=== PATIENT | female | born 1950 | race Caucasian/White ===

== ENCOUNTER → 2016-10-12 | Outpatient (CLI) | payer BC ==
[~2016-10-12] MED LIST: ALBU1AER9 INH; ASCO1CAP3 PO; CALC1CHW57 PO; CALC500T83 PO; CHOL100027 PO; CHOL1TAB76 PO; CLOTLOT2 TOP; CYAN10004 PO; DICL1GEL12 TOP; FBR PO; FIBE1CHW PO; FLNIN NAE; GABA1CAP5 PO; NAPR1TAB9 PO; PANT40TA PO; PLMINS NEB; POLY335019 PO; PRLSR20 PO; PRVC10 PO; PSYL55.43 PO; RANI300T2 PO; SNG10 PO; SYMIN160 INH
[2016-10-12 11:26] LABS: BLOOD UREA NITROGEN 17 mg/dl (7-18); BUN/CREATININE RATIO 22.2 (10-20); C-REACTIVE PROTEIN < 0.29 mg/dl (0-0.29); CALCIUM 9.4 mg/dl (8.5-10.1); CARBON DIOXIDE 29 mmol/L (21-32); CHLORIDE 105 mmol/L (98-107); CREATININE 0.77 mg/dl (0.60-1.20); GLUCOSE 87 mg/dl (70-99); POTASSIUM 4.3 mmol/L (3.5-5.1); SODIUM 139 mmol/L (136-145)
[2016-10-12 11:29] LABS: CHOLESTEROL 268 mg/dl (0-200); CHOLESTEROL/HDL RATIO 3.6; HDL CHOLESTEROL 75 mg/dl; LDL CHOLESTEROL CALCULATED 167 mg/dl; TRIGLYCERIDES 128 mg/dl (0-150); VERY LOW DENSITY LIPOPROT CALC 26 mg/dl
== END | disposition home or self-care (01) ==
LOC: C.LAB1850 09:58
PROVIDERS: ATTEND Family Medicine
DX: R79.82 Elevated C-reactive protein (CRP) (principal); E78.00 Pure hypercholesterolemia, unspecified

== ENCOUNTER → 2016-11-27 | Outpatient (CLI) | payer BC ==
[~2016-11-27] MED LIST changes: +MONT1TAB3 PO; +PLMINS; -PLMINS NEB; +PSYL0.524 PO; +VNTHFA/IN INH
--- NOTE | 2016-11-27 12:47 | MAMMOGRAPHY REPORT ---
BILATERAL DIGITAL SCREENING MAMMOGRAM WITH CAD: 11/27/2016 CLINICAL HISTORY: Routine screening. Patient has no complaints. TECHNIQUE: Bilateral CC and MLO views were obtained. Current study was also evaluated with a Comput er Aided Detection (CAD) system. COMPARISON: Comparison is made to exams dated: 11/25/2015 mammogram, 11/23/2014 mammogram, 10/08/2013 ma mmogram, 09/09/2012 mammogram, 02/20/2012 mammogram, and 02/14/2011 mammogram - [facility] nter. BREAST COMPOSITION: The tissue of both breasts is heterogeneously dense, which may obscure small ma sses. FINDINGS: There is an asymmetry in the posterior, slightly superior left breast, only seen on the M LO view. Although this could represent normal overlapping tissue, additional spot compression tomos ynthesis views and possibly ultrasound are recommended. There are scattered benign-appearing microcalcifications bilaterally. Stable intramammary lymph nod es in the posterior right breast. No other suspicious mass, architectural distortion or cluster of microcalcifications is seen bilaterally. IMPRESSION: ACR BI-RADS CATEGORY 0: INCOMPLETE EVALUATION: NEED ADDITIONAL IMAGING EVALUATION The asymmetry in the superior, posterior left breast needs additional evaluation. The patient will be called to schedule an appointment. Approximately 10% of breast cancers are not detected with mammography. A negative mammographic repor t should not delay biopsy if a clinically suggestive mass is present. Pamela Johnson M.D. ay/:11/27/2016 12:25:29 Floor Press Operator: Ruthie DHILLON(Radha)(Gabriela), [facility] letter sent: Addl Imaging 0 BI-RADS Code: ACR BI-RADS Category 0: Incomplete Evaluation: Need Additional Imaging Evaluation
== END | disposition home or self-care (01) ==
LOC: C.MAMM 09:58
PROVIDERS: ATTEND Obstetrics & Gynecology
DX: Z12.31 Encounter for screening mammogram for malignant neoplasm of breast (principal); N64.89 Other specified disorders of breast

== ENCOUNTER → 2016-12-05 | Outpatient (CLI) | payer BC ==
--- NOTE | 2016-12-05 14:54 | MAMMOGRAPHY REPORT ---
UNILATERAL LEFT DIGITAL DIAGNOSTIC MAMMOGRAM TOMOSYNTHESIS AND TARGETED LEFT ULTRASOUND: 12/05/2016 CLINICAL HISTORY: Callback from screening mammogram for left breast asymmetry. TECHNIQUE: Breast tomosynthesis in addition to standard 2D mammography was performed. Spot waylon yolanda left CC and MLO 2-D and tomosynthesis images were obtained. COMPARISON: Comparison is made to exams dated: 11/27/2016 mammogram, 11/25/2015 mammogram, 11/23/2014 jeannette mogram, 10/08/2013 mammogram, 09/09/2012 mammogram, and 03/04/2012 ultrasound - [facility] enter. BREAST COMPOSITION: The tissue of the left breast is heterogeneously dense, which may obscure small masses. FINDINGS: The previously described asymmetry seen within the left superior breast on the MLO view e ffaces to a baseline appearance on the additional spot compression view, and has the appearance of n ormal fibroglandular tissue on the tomosynthesis images. Targeted ultrasound was performed of the left superior breast in the region of the mammographic asym metry. Sonographically normal tissue is seen, without evidence of a mass or other suspicious sonogr aphic abnormality. IMPRESSION: ACR BI-RADS CATEGORY 2: BENIGN, TARGETED ULTRASOUND ACR BI-RADS CATEGORY 2: BENIGN The left breast asymmetry effaces on the additional views, without corresponding sonographic abnorma lity evident. The asymmetry is benign and compatible with normal fibroglandular tissue. There is n o mammographic or targeted sonographic evidence of malignancy. A 1 year screening mammogram is recom mended. The patient has been verbally notified of the results. Approximately 10% of breast cancers are not detected with mammography. A negative mammographic repor t should not delay biopsy if a clinically suggestive mass is present. Millie Hernandez M.D. /:12/05/2016 13:31:46 Steam Hoist Operator: Zeny Kaur, [facility] letter sent: Normal 1/2 BI-RADS Code: ACR BI-RADS Category 2: Benign Ultrasound BI-RADS: ACR BI-RADS Category 2: Benign
== END | disposition home or self-care (01) ==
LOC: C.MAMM 13:01
PROVIDERS: ATTEND Obstetrics & Gynecology
DX: N64.89 Other specified disorders of breast (principal)

== ENCOUNTER → 2017-03-21 | Day surgery (SDC) | payer BC ==
[2017-03-14 11:29] VITALS: BMI 27.0
[~2017-03-21] VITALS: Ht 175.3 cm; Wt 81.8 kg
[~2017-03-21] MED LIST changes: -CALC500T83 PO; -CHOL100027 PO; -FBR PO; -FLNIN NAE; -GABA1CAP5 PO; +LIDOCAINE HCL 2% 2 ML VIAL (20MG/ML) ONE; -MONT1TAB3 PO; -PLMINS; +PLMINS NEB; -PRLSR20 PO; +PROPOFOL IV EMULSION 10 MG/ML 20 ML VIAL IV ONE; -PSYL0.524 PO; +SODIUM CHLORIDE 0.9% 500ML 500 ML IV ONE; -VNTHFA/IN INH
--- NOTE | 2017-03-21 12:53 | Endo History and Physical ---
History & Physical Date of Service: Mar 21, 2017. Chief Complaint: Screening and Kirby's Esophagus Referring Physician: Dr. Brown History of Present Illness 66 yo CF who presents for EGD secondary to Kirby's Esophagus and Screening colonoscopy. Past Medical History Asthma, Reflux, Chronic Steroid Use Past Surgical History Hx Cardiac Surgery: No Hx Internal Defibrillator: No Hx Pacemaker: No Hx Abdominal Surgery: Yes (HYSTER) Hx of Implantable Prosthesis: No Hx Post-Op Nausea and Vomiting: No Hx Cancer Surgery: No Hx Thoracic Surgery: No Hx Orthopedic: Yes (LT FOOT SURGERY, RT KNEE SURGERY) Hx Urinary Tract Surgery: No Family History None Social History Smoking Status: Never Smoker Hx Substance Use: No Hx Alcohol Use: No Allergies Coded Allergies: Clindamycin (Verified Allergy, Intermediate, RASH, 03/14/17) Adhesives (Verified Allergy, Mild, RASH, 03/21/17) Ibuprofen (Verified Allergy, Mild, RASH, 03/14/17) Pseudoephedrine (Verified Allergy, Mild, RASH, 03/21/17) Triprolidine (Verified Allergy, Mild, RASH, 03/14/17) Latex1 -Allergic Contact Dermititis (Verified Allergy, Unknown, RASH, 03/14) Current Medications Reported Home Medications Medications Dose Route/Sig Max Daily Dose Days Date Category Zantac (Ranitidine HCl) 300 Mg Tab 300 Mg PO HS PRN 03/14/17 Reported Calcium + D (Calcium W/ Vitamins D & K) 1 Chw Chw 2 Tabs PO QAM 03/14/17 Reported Fiber Select Gummies (Fiber) 1 Chw Chw 2 Tabs PO QAM 03/14/17 Reported Pravastatin Sodium (Pravastatin Sod) 10 Mg Tab 1 Tab PO HS 03/14/17 Reported Protonix (Pantoprazole Sodium) 40 Mg Tab 2 Tabs PO BID 03/14/17 Reported Aleve (Naproxen) 220 Mg Tab 220 Mg PO BID PRN 03/14/17 Reported Budesonide 0.5 Mg/2 Ml Nebu 1 Vial NEB QAM 03/14/17 Reported Voltaren 1% Top Gel (Diclofenac Sodium (Topical)) 1 % Gel 1 Dose TOP QID PRN 03/14/17 Reported Clotrimazole/Betamethason (Clotrimazole W/ Betamethasone) 1 Lot Lot 1 Dose TOP BID PRN 03/14/17 Reported D 2000 (Cholecalciferol) 2,000 Unit Tab 1 Tab PO QAM 03/14/17 Reported Metamucil Powder (Psyllium Hydrophilic Mucilloid) Powd 1 Pack PO QAM 01/30/16 Reported Miralax (Polyethylene Glycol 3350) 1 Pow Pow 17 Gm PO 3XWK 01/30/16 Reported Vitamin B-12 1000 Mcg (Cyanocobalamin) 1,000 Mcg Tab 1,000 Mcg PO QAM 01/30/16 Reported Proair Hfa (Albuterol Sulfate) 108 Mcg/ Aer 2 Puffs INH Q4H PRN 01/30/16 Reported Symbicort 160/4.5 Inhaler (Budesonide/Formoterol Fumarate) Aero 2 Puffs INH QAM 02/02/14 Reported Vitamin C (Ascorbic Acid) 500 Mg Cap 500 Mg PO QAM 01/26/14 Reported Singulair * (Montelukast Sodium) 10 Mg Tab 10 Mg PO QAM 10/02/07 Reported Vital Signs Weight (Kilograms): 81.82 Height (Feet): 5 Height (Inches): 8.5 Physical Exam General Appearance: WD/WN, no apparent distress Respiratory/Chest: Auscultation: breath sounds normal Cardiovascular: Heart Auscultation: RRR Abdomen: Bowel Sounds: normal Inspection & Palpation: soft, non-distended, no tenderness, guarding & rebound Assessment and Plan Assessment: 66 yo CF who presents for EGD secondary to Kirby's Esophagus and Screening colonoscopy. Plan: Proceed with EGD and Colonoscopy.
[2017-03-21 12:56] VITALS: Ht 175.3 cm; Wt 81.8 kg
--- NOTE | 2017-03-21 14:10 | Discharge Instructions ---
Endoscopy Patient Instructions Date / Procedure(s) Performed Mar 21, 2017. Colonoscopy, EGD Allergy Information Coded Allergies: Clindamycin (Verified Allergy, Intermediate, RASH, 03/14/17) Adhesives (Verified Allergy, Mild, RASH, 03/21/17) Ibuprofen (Verified Allergy, Mild, RASH, 03/14/17) Pseudoephedrine (Verified Allergy, Mild, RASH, 03/21/17) Triprolidine (Verified Allergy, Mild, RASH, 03/14/17) Latex1 -Allergic Contact Dermititis (Verified Allergy, Unknown, RASH, 03/14) Discharge Date / Findings Mar 21, 2017. EGD: Kirby's Esophagus s/p biopsies and hiatal hernia Colonoscopy: Diverticulosis and Internal hemorrhoids Medication Instructions OK to resume all medications today as prescribed Reported Home Medications Medications Dose Route/Sig Max Daily Dose Days Date Category Zantac (Ranitidine HCl) 300 Mg Tab 300 Mg PO HS PRN 03/14/17 Reported Calcium + D (Calcium W/ Vitamins D & K) 1 Chw Chw 2 Tabs PO QAM 03/14/17 Reported Fiber Select Gummies (Fiber) 1 Chw Chw 2 Tabs PO QAM 03/14/17 Reported Pravastatin Sodium (Pravastatin Sod) 10 Mg Tab 1 Tab PO HS 03/14/17 Reported Protonix (Pantoprazole Sodium) 40 Mg Tab 2 Tabs PO BID 03/14/17 Reported Aleve (Naproxen) 220 Mg Tab 220 Mg PO BID PRN 03/14/17 Reported Budesonide 0.5 Mg/2 Ml Nebu 1 Vial NEB QAM 03/14/17 Reported Voltaren 1% Top Gel (Diclofenac Sodium (Topical)) 1 % Gel 1 Dose TOP QID PRN 03/14/17 Reported Clotrimazole/Betamethason (Clotrimazole W/ Betamethasone) 1 Lot Lot 1 Dose TOP BID PRN 03/14/17 Reported D 2000 (Cholecalciferol) 2,000 Unit Tab 1 Tab PO QAM 03/14/17 Reported Metamucil Powder (Psyllium Hydrophilic Mucilloid) Powd 1 Pack PO QAM 01/30/16 Reported Miralax (Polyethylene Glycol 3350) 1 Pow Pow 17 Gm PO 3XWK 01/30/16 Reported Vitamin B-12 1000 Mcg (Cyanocobalamin) 1,000 Mcg Tab 1,000 Mcg PO QAM 01/30/16 Reported Proair Hfa (Albuterol Sulfate) 108 Mcg/ Aer 2 Puffs INH Q4H PRN 01/30/16 Reported Symbicort 160/4.5 Inhaler (Budesonide/Formoterol Fumarate) Aero 2 Puffs INH QAM 02/02/14 Reported Vitamin C (Ascorbic Acid) 500 Mg Cap 500 Mg PO QAM 01/26/14 Reported Singulair * (Montelukast Sodium) 10 Mg Tab 10 Mg PO QAM 10/02/07 Reported Provider Instructions Activity Restrictions - No exercising or heavy lifting for 24 hours. - Do not drink alcohol the day of the procedure. - Do not drive a car or operate machinery until the day after the procedure. - Do not make any important decisions or sign important papers in 24 hours after the procedure. Following Day: - Return to full activity which may include returning to work/school. Diet Start your diet with liquids and light foods (jello, soup, juice, toast). Then eat your usual diet if not nauseated. Treatment For Common After Affects For mild abdominal pain, bloating, or excessive gas: - Rest - Eat lightly - Lie on right side Follow-Up Information Follow-up with DR MAGANA as scheduled Anesthesia Information What You Should Know You have had a procedure that required some medicine to reduce anxiety and discomfort. This treatment is called moderate sedation. After receiving the treatment, you may be sleepy, but you will be able to breathe on your own. The effects of the treatment may last for several hours. Follow these instructions along with Activity/Diet recommendations noted above: * Do NOT do anything where dizziness or clumsiness would be dangerous. * Rest quietly at home today, then you can be up and about tomorrow. * Have a responsible person stay with you the rest of today. * You may have had an I.V. today. If so, you may take the dressing off later today. Recommendations Call your doctor if: * Trouble breathing * Continuous vomiting for more than 24 hours * Temperature above 101 degrees * Severe abdominal pain or bloating * Pain not relieved by pain medicine ordered * There is increased drainage or redness from any incision * A large amount of rectal bleeding greater than 2-3 tablespoons. (If you had a polyp/s removed or have hemorrhoids, a small amount of blood - from the rectum is to be expected.) * You have any unanswered questions or concerns. IN THE EVENT OF A SERIOUS EMERGENCY, GO TO THE NEAREST EMERGENCY ROOM Your discharge instructions were prepared by provider Jorge Toledo. Patient Instructions Signature Page Kanwal Betts Patient (or Guardian) Signature/Date: I have read and understand the instructions given to me by my caregivers. Caregiver/RN/Doctor Signature/Date: The above-named patient and/or guardian has received patient instructions on this date. + Original Patient Signature Page (only) stays with chart. Please make copy for patient.
--- NOTE | 2017-03-21 14:17 | GI REPORT ---
Procedure Date: 03/21/2017 1:23 PM Procedure: Upper GI endoscopy Indications: Follow-up of Kirby's esophagus Medicines: Monitored Anesthesia Care Complications: No immediate complications. Estimated Blood Loss: Estimated blood loss: none. Procedure: Pre-Anesthesia Assessment: - Prior to the procedure, a History and Physical was performed, and patient medications and allergies were reviewed. The patient's tolerance of previous anesthesia was also reviewed. The risks and benefits of the procedure and the sedation options and risks were discussed with the patient. All questions were answered, and informed consent was obtained. Prior Anticoagulants: The patient has taken no previous anticoagulant or antiplatelet agents. ASA Grade Assessment: II - A patient with mild systemic disease. After reviewing the risks and benefits, the patient was deemed in satisfactory condition to undergo the procedure. After obtaining informed consent, the endoscope was passed under direct vision. Throughout the procedure, the patient's blood pressure, pulse, and oxygen saturations were monitored continuously. The scope was introduced through the mouth, and advanced to the second part of duodenum. The upper GI endoscopy was accomplished without difficulty. The patient tolerated the procedure well. Findings: There were esophageal mucosal changes consistent with short-segment Kirby's esophagus present at the gastroesophageal junction. The maximum longitudinal extent of these mucosal changes was 1 cm in length. Mucosa was biopsied with a cold forceps for histology. One specimen bottle was sent to pathology. A small hiatus hernia was present. The examined duodenum was normal. Impression: - Esophageal mucosal changes consistent with short-segment Kirby's esophagus. Biopsied. - Small hiatus hernia. - Normal examined duodenum. Recommendation: - Resume previous diet. - Continue present medications. - Await pathology results. - Return to primary care physician as previously scheduled. Jorge Toledo, 03/21/2017 2:17:00 PM This report has been signed electronically. Note Initiated On: 03/21/2017 1:23 PM I attest to the content of the Intraoperative Record and orders documented therein, exceptions below
--- NOTE | 2017-03-21 14:19 | GI REPORT ---
Procedure Date: 03/21/2017 1:53 PM Procedure: Colonoscopy Indications: Screening for colorectal malignant neoplasm Medicines: Monitored Anesthesia Care Complications: No immediate complications. Estimated Blood Loss: Estimated blood loss: none. Procedure: Pre-Anesthesia Assessment: - Prior to the procedure, a History and Physical was performed, and patient medications and allergies were reviewed. The patient's tolerance of previous anesthesia was also reviewed. The risks and benefits of the procedure and the sedation options and risks were discussed with the patient. All questions were answered, and informed consent was obtained. Prior Anticoagulants: The patient has taken no previous anticoagulant or antiplatelet agents. ASA Grade Assessment: II - A patient with mild systemic disease. After reviewing the risks and benefits, the patient was deemed in satisfactory condition to undergo the procedure. After I obtained informed consent, the scope was passed under direct vision. Throughout the procedure, the patient's blood pressure, pulse, and oxygen saturations were monitored continuously. The On-site loaner was introduced through the anus and advanced to the terminal ileum. The colonoscopy was performed without difficulty. The patient tolerated the procedure well. The quality of the bowel preparation was good. The terminal ileum, ileocecal valve, appendiceal orifice, and rectum were photographed. Findings: Multiple small-mouthed diverticula were found in the sigmoid colon. Non-bleeding internal hemorrhoids were found during retroflexion. The hemorrhoids were small. Impression: - Diverticulosis in the sigmoid colon. - Non-bleeding internal hemorrhoids. - No specimens collected. Recommendation: - Resume previous diet. - Continue present medications. - Repeat colonoscopy in 10 years for surveillance. - Return to primary care physician as previously scheduled. Jorge Toledo, 03/21/2017 2:18:59 PM This report has been signed electronically. Note Initiated On: 03/21/2017 1:53 PM I attest to the content of the Intraoperative Record and orders documented therein, exceptions below
--- NOTE | 2017-03-21 14:37 | Anesthesiology Progress Note ---
Anesthesia Post Op Note Date & Time Mar 21, 2017 at 14:37 Vital Signs Pain Intensity: 0 Vital Signs Past 12 Hours Date Time Temp Pulse Resp B/P (MAP) Pulse Ox O2 Delivery O2 Flow Rate FiO2 03/21/17 14:23 71 20 130/74 (92) 96 Room Air 03/21/17 14:08 75 20 118/65 (82) 95 Room Air 03/21/17 12:55 36.3 79 20 136/68 (90) 96 Room Air Notes Mental Status: alert / awake / arousable, participated in evaluation Pt Amnestic to Procedure: Yes Nausea / Vomiting: adequately controlled Pain: adequately controlled Airway Patency, RR, SpO2: stable & adequate BP & HR: stable & adequate Hydration State: stable & adequate Anesthetic Complications: no major complications apparent
[2017-03-21 14:40] VITALS: BP 128/74; PULSE 75; O2SAT 95
== END | disposition home or self-care (01) ==
LOC: C.GI 12:32
PROVIDERS: ATTEND Internal Medicine
DX: Z12.11 Encounter for screening for malignant neoplasm of colon (principal); K57.30 Diverticulosis of large intestine without perforation or abscess without bleeding; K64.8 Other hemorrhoids; K22.70 Barrett's esophagus without dysplasia; K44.9 Diaphragmatic hernia without obstruction or gangrene; K21.9 Gastro-esophageal reflux disease without esophagitis; J45.909 Unspecified asthma, uncomplicated; Z79.52 Long term (current) use of systemic steroids; Z79.899 Other long term (current) drug therapy
CPT/HCPCS: 43239; G0121

== ENCOUNTER → 2017-05-01 | Outpatient (CLI) | payer BC ==
[~2017-05-01] MED LIST changes: -LIDOCAINE HCL 2% 2 ML VIAL (20MG/ML) ONE; +MONT1TAB3 PO; +PLMINS; -PLMINS NEB; -PROPOFOL IV EMULSION 10 MG/ML 20 ML VIAL IV ONE; +PSYL0.524 PO; -SODIUM CHLORIDE 0.9% 500ML 500 ML IV ONE; +VNTHFA/IN INH
[2017-05-01 10:24] LABS: CHOLESTEROL/HDL RATIO 2.6
== END | disposition home or self-care (01) ==
LOC: C.LAB1850 07:50
PROVIDERS: ATTEND Family Medicine
DX: E78.00 Pure hypercholesterolemia, unspecified (principal)